=== PATIENT | male | born 1995 | race Caucasian/White ===

== ENCOUNTER 2018-01-20 20:18 | Emergency (ER) | payer OTHER ==
[~2018-01-20] VITALS: Ht 182.9 cm; Wt 100.8 kg
[2018-01-20 20:19] VITALS: BP 149/89
== END 2018-01-20 20:58 | disposition home or self-care (01) ==
LOC: ED 20:52
DX: M62.838 Other muscle spasm (principal); G89.29 Other chronic pain
CPT/HCPCS: 99284

== ENCOUNTER 2018-02-16 14:01 | Emergency (ER) | payer OTHER ==
[~2018-02-16] VITALS: Ht 182.9 cm; Wt 98.7 kg
[2018-02-16 14:19] VITALS: BP 133/84
[2018-02-16] MEDS ORDERED: DEXAMETHASONE 4 MG TABLET ONE (15:51)
[2018-02-16] MEDS ORDERED: DEXAMETHASONE 4 MG TABLET PO ONE (16:00)
== END 2018-02-16 16:36 | disposition home or self-care (01) ==
LOC: ED 15:11
DX: J02.8 Acute pharyngitis due to other specified organisms (principal); B97.89 Other viral agents as the cause of diseases classified elsewhere
CPT/HCPCS: 71046; 87081; 87880; 99285